=== PATIENT | female | born 1990 | race Caucasian/White ===

== ENCOUNTER 2016-08-05 21:19 | Emergency (ER) | payer SELFPAY ==
[~2016-08-05] VITALS: Ht 157.4 cm; Wt 78.5 kg
[2016-08-05] MEDS ORDERED: CEFDINIR250 MG/5 M PO (22:12)
[2016-08-05] MEDS ORDERED: TYLENOL W/ CODEI5 ML PO (22:12)
== END 2016-08-05 23:27 | disposition home or self-care (01) ==
LOC: ED 21:19
DX: H66.001 Acute suppurative otitis media without spontaneous rupture of ear drum, right ear (principal); F17.200 Nicotine dependence, unspecified, uncomplicated; Z88.1 Allergy status to other antibiotic agents

== ENCOUNTER → 2017-02-13 | Outpatient (CLI) | payer MEDICARE, MEDICAID ==
[~2017-02-13] MED LIST: CEFDINIR250 MG/5 M PO; TYLENOL W/ CODEI5 ML PO
== END | disposition home or self-care (01) ==
LOC: US 03:06
DX: Z34.81 Encounter for supervision of other normal pregnancy, first trimester (principal)

== ENCOUNTER 2017-02-20 10:12 | Emergency (ER) | payer MEDICARE ==
[~2017-02-20] VITALS: Wt 83.5 kg
[2017-02-20] MEDS ORDERED: CEFTIN250 MG/5 M PO (10:52)
[2017-02-20] MEDS ORDERED: VENTOLIN 02.5 MG/3 M INH (11:57)
== END 2017-02-20 11:55 | disposition home or self-care (01) ==
LOC: ED 10:12
DX: O99.511 Diseases of the respiratory system complicating pregnancy, first trimester (principal); R09.81 Nasal congestion; R05 Cough; J06.9 Acute upper respiratory infection, unspecified; J45.909 Unspecified asthma, uncomplicated; Z3A.08 8 weeks gestation of pregnancy; Z88.1 Allergy status to other antibiotic agents; Z88.8 Allergy status to other drugs, medicaments and biological substances

== ENCOUNTER 2017-04-11 10:46 | Emergency (ER) | payer MEDICARE ==
[~2017-04-11] VITALS: Ht 157.4 cm; Wt 85.7 kg
[~2017-04-11 10:46] MED LIST changes: +CEFTIN250 MG/5 M PO; +VENTOLIN 02.5 MG/3 M INH
[2017-04-11] MEDS ORDERED: PRENATAL 19 TA1 EAC1 PO (10:51)
[2017-04-11 11:22] LABS: BASO % 0.3 % (0.0-1.0); EOS # 0.1 10*3/uL (0.0-0.4); EOS % 0.7 % (1.0-4.0); HEMATOCRIT 38.4 % (37.0-47.0); HEMOGLOBIN 13.8 g/dl (12.0-16.0); LYMPH # 2.5 10*3/uL (1.3-4.4); LYMPH % 23.1 % (27.0-41.0); MEAN CELL VOLUME 91.6 fl (81.0-99.0); MEAN CORPUSCULAR HGB 32.9 pg (27.0-31.0); MEAN CORPUSCULAR HGB CONC 35.9 g/dl (33.0-37.0); MEAN PLATELET VOLUME 10.6 fl (9.6-12.3); MONO # 0.7 10*3/uL (0.1-1.0); MONO % 6.2 % (3.0-9.0); NEUT # 7.4 10*3/uL (2.3-7.9); NEUT % 69.2 % (47.0-73.0); PLATELET COUNT AUTOMATED 222 10*3/uL (130-400); RED BLOOD COUNT 4.19 10*6/uL (4.10-5.10); RED CELL DISTRI WIDTH 12.2 % (0-14.5); WHITE BLOOD COUNT 10.7 10*3/uL (4.8-10.8)
[2017-04-11 11:30] LABS: BILIRUBIN NEGATIVE (NEGATIVE); BLOOD NEGATIVE (NEGATIVE); CLARITY CLOUDY (CLEAR); COLOR YELLOW (YELLOW); GLUCOSE NEGATIVE (NEGATIVE); KETONE TRACE (NEGATIVE); LEUKO ESTERASE 3+ (NEGATIVE); NITRITE NEGATIVE (NEGATIVE); SPECIFIC GRAVITY 1.025 (1.005-1.030); UROBILINOGEN 0.2 E.U./dl (0.2-1.0)
[2017-04-11 11:37] LABS: ALBUMIN 3.1 gm/dl (3.1-4.5); ALKALINE PHOSPHATASE 52 U/L (45-117); BUN 6 mg/dl (7-24); CHLORIDE 105 mmol/L (98-107); CREATININE 0.72 mg/dL (0.55-1.02); LIPASE 155 U/L (73-393); POTASSIUM 3.6 mmol/L (3.5-5.1); SGOT/AST 15 IU/L (3-35); SGPT/ALT 32 U/L (12-78); SODIUM 140 mmol/L (136-145)
[2017-04-11 11:42] LABS: EPITHELIAL CELLS TNTC; WBC TNTC wbc/hpf (0-5)
[2017-04-11 11:43] LABS: BACTERIA 2+
[2017-04-11] MEDS ORDERED: AMINOPHYLLIN200 MG PO (13:13)
== END 2017-04-11 13:53 | disposition home or self-care (01) ==
LOC: ED 10:46
PROVIDERS: Physician Assistant
DX: O21.9 Vomiting of pregnancy, unspecified (principal); O23.42 Unspecified infection of urinary tract in pregnancy, second trimester; Z3A.16 16 weeks gestation of pregnancy; Z79.899 Other long term (current) drug therapy; Z88.1 Allergy status to other antibiotic agents; Z88.8 Allergy status to other drugs, medicaments and biological substances

== ENCOUNTER 2019-09-28 07:53 | Emergency (ER) | payer OTHER ==
[~2019-09-28] VITALS: Ht 157.4 cm
[~2019-09-28 07:53] MED LIST changes: +AMINOPHYLLIN200 MG PO; +PREDNISOLO15 MG/5 M1 PO; +PREDNISONE50 MG PO; +PRENATAL 19 TA1 EAC1 PO
== END 2019-09-28 08:35 | disposition home or self-care (01) ==
LOC: ED 07:53
DX: L25.9 Unspecified contact dermatitis, unspecified cause (principal); Z88.8 Allergy status to other drugs, medicaments and biological substances; Z79.899 Other long term (current) drug therapy

== ENCOUNTER 2021-02-05 10:22 | Emergency (ER) | payer OTHER ==
[~2021-02-05] VITALS: Ht 157.4 cm; Wt 90.7 kg
[2021-02-05 11:45] LABS: BILIRUBIN Negative (Negative); BLOOD Negative (Negative); CLARITY Cloudy (Clear); COLOR Yellow (Yellow); GLUCOSE Negative (Negative); KETONE Negative (Negative); LEUKO ESTERASE 3+ (Negative); NITRITE Negative (Negative); PH 7.5 (4.5-8.0); SPECIFIC GRAVITY 1.015 (1.001-1.030)
[2021-02-05 12:00] LABS: BACTERIA 1+; WBC 31-40 wbc/hpf (0-5)
[2021-02-05] MEDS ORDERED: MACROBID100 M1 PO (12:14)
== END 2021-02-05 13:05 | disposition home or self-care (01) ==
LOC: ED 10:22
PROVIDERS: Emergency Medicine
DX: R10.10 Upper abdominal pain, unspecified (principal); Z88.1 Allergy status to other antibiotic agents; Z88.8 Allergy status to other drugs, medicaments and biological substances

== ENCOUNTER 2021-03-10 16:36 | Emergency (ER) | payer OTHER ==
[~2021-03-10] VITALS: Ht 157.4 cm; Wt 90.7 kg
[~2021-03-10 16:36] MED LIST changes: +MACROBID100 M1 PO
[2021-03-10 17:32] LABS: BASO % 0.3 % (0.0-1.0); EOS % 0.3 % (1.0-4.0); HEMATOCRIT 41.6 % (37.0-47.0); LYMPH % 30.2 % (27.0-41.0); MEAN CELL VOLUME 92.7 fl (81.0-99.0); MEAN CORPUSCULAR HGB 31.2 pg (27.0-31.0); MEAN CORPUSCULAR HGB CONC 33.7 g/dl (33.0-37.0); MEAN PLATELET VOLUME 10.5 fl (9.6-12.3); MONO # 0.4 10*3/uL (0.1-1.0); MONO % 13.3 % (3.0-9.0); NEUT # 1.8 10*3/uL (2.3-7.9); NEUT % 55.6 % (47.0-73.0); PLATELET COUNT AUTOMATED 166 10*3/uL (130-400); RED BLOOD COUNT 4.49 10*6/uL (4.10-5.10); RED CELL DISTRI WIDTH 11.9 % (0-14.5); WHITE BLOOD COUNT 3.3 10*3/uL (4.8-10.8)
[2021-03-10 17:46] LABS: ALBUMIN 3.5 gm/dl (3.1-4.5); ALKALINE PHOSPHATASE 62 U/L (45-117); BUN 10 mg/dl (7-24); CHLORIDE 108 mmol/L (98-107); CREATININE 0.99 mg/dL (0.55-1.02); SGOT/AST 24 IU/L (3-35); SGPT/ALT 51 U/L (12-78); SODIUM 140 mmol/L (136-145); TOTAL PROTEIN 7.3 gm/dL (6.4-8.2)
[2021-03-10 17:57] LABS: BILIRUBIN Negative (Negative); BLOOD Negative (Negative); CLARITY Clear (Clear); COLOR Yellow (Yellow); GLUCOSE Negative (Negative); KETONE Negative (Negative); LEUKO ESTERASE Negative (Negative); NITRITE Negative (Negative); PH 6.5 (4.5-8.0); SPECIFIC GRAVITY 1.015 (1.001-1.030)
[2021-03-10 18:15] LABS: BACTERIA 1+
== END 2021-03-10 19:09 | disposition home or self-care (01) ==
LOC: ED 16:36
PROVIDERS: Nurse Practitioner Family
DX: M79.604 Pain in right leg (principal); M79.605 Pain in left leg; M79.652 Pain in left thigh; M79.651 Pain in right thigh; Z88.1 Allergy status to other antibiotic agents; Z88.8 Allergy status to other drugs, medicaments and biological substances

== ENCOUNTER 2022-12-20 08:23 | Emergency (ER) | payer OTHER ==
[~2022-12-20] VITALS: Ht 157.4 cm; Wt 88.5 kg
[2022-12-20] MEDS ORDERED: CYCLOBENZAPRINE10 MG PO (14:08)
== END 2022-12-20 14:09 | disposition home or self-care (01) ==
LOC: ED 08:23
DX: S16.1XXA Strain of muscle, fascia and tendon at neck level, initial encounter (principal); S09.90XA Unspecified injury of head, initial encounter; R42 Dizziness and giddiness; Z88.1 Allergy status to other antibiotic agents; Z88.8 Allergy status to other drugs, medicaments and biological substances; W18.39XA Other fall on same level, initial encounter; Y93.89 Activity, other specified; Y92.89 Other specified places as the place of occurrence of the external cause; Y99.8 Other external cause status

== ENCOUNTER → 2023-07-30 | Outpatient (CLI) | payer OTHER ==
[~2023-07-30] MED LIST changes: +CYCLOBENZAPRINE10 MG PO
== END | disposition home or self-care (01) ==
LOC: US 15:00
PROVIDERS: ATTEND Nurse Practitioner Family
DX: M79.662 Pain in left lower leg (principal)

== ENCOUNTER 2024-05-29 09:03 | Emergency (ER) | payer OTHER ==
[~2024-05-29] VITALS: Ht 157.4 cm; Wt 81.6 kg
[2024-05-29] MEDS ORDERED: IBUPROFEN 800 MG TAB PO ONE (09:35)
[2024-05-29] MEDS ORDERED: Ondansetron Hydrochloride 4 MG TAB PO ONE (09:35)
[2024-05-29] MEDS ORDERED: DEXAMETHAS PO (11:05)
[2024-05-29] MEDS ORDERED: TAMIFLU6 MG/1 ML PO (11:05)
== END 2024-05-29 11:15 | disposition home or self-care (01) ==
LOC: ED 09:03
DX: U07.1 COVID-19 (principal); J10.1 Influenza due to other identified influenza virus with other respiratory manifestations; Z88.1 Allergy status to other antibiotic agents; Z88.8 Allergy status to other drugs, medicaments and biological substances; Z79.899 Other long term (current) drug therapy